=== PATIENT | female | born 1990 | race Caucasian/White ===

== ENCOUNTER 2019-06-26 07:57 | Inpatient (IN) ==
[2019-06-26] MEDS ORDERED: IOPAMIDOL 100 ML BOTTLE IV ONE (07:58)
[2019-06-26] MEDS ORDERED: IPRATROPIUM/ALBUTEROL 3 ML AMPUL.NEB NEB ONE (08:06)
--- NOTE | 2019-06-26 08:06 | Emergency Department Note ---
SOB HPI - General Chief Complaint: Shortness of Breath/Dyspnea Stated Complaint: shortness of breath Time Seen by Provider: 06/26/19 08:02 Mode of arrival: ambulatory - History of Present Illness This patient started feeling short of breath with cough last evening. She is coughing up a lot of phlegm. No history of asthma. No history of vaping though she does smoke cigarettes. - Related Data Previous Rx's Medication Instructions Recorded norgestimate-ethinyl estradiol 1 tab PO QDAY #28 tab 04/20/19 sertraline 100 mg tablet 100 mg PO QDAY #30 tab 06/06/19 Allergies Allergy/AdvReac Type Severity Reaction Status Date / Time No Known Drug Allergies Allergy Verified 06/06/19 08:44 Review of Systems All systems ED: reviewed and negative except as stated. Past Medical History - Past Medical History Medical history: Reports: no medical history, other (anxiety with panic attack) Psychiatric history: Reports: anxiety, panic disorder. Denies: PTSD, prior suicide attempt - Social History smoking status: Current every day smoker Physical Exam Limitations: no limitations General appearance: alert Head: atraumatic Eye: Present: normal appearance ENT: Present: normal exam Neck: Present: normal inspection Chest: Present: normal inspection Respiratory: Present: rales/crackles, wheezes Cardiovascular: Present: regular rate, normal rhythm, normal heart sounds Abdominal: Present: soft. Absent: distention, tenderness Neurological: Present: alert Psychiatric: Present: normal affect Skin: Present: warm, dry Course Vital Signs Temperature 97.1 F 06/26/19 07:58 Pulse Rate 109 H 06/26/19 07:58 Respiratory Rate 22 06/26/19 07:58 Blood Pressure 133/70 06/26/19 07:58 Pulse Oximetry (%) 91 06/26/19 07:58 Temperature 97.1 F 06/26/19 07:58 Pulse Rate 108 H 06/26/19 08:34 Respiratory Rate 20 06/26/19 08:34 Blood Pressure 133/70 06/26/19 07:58 Pulse Oximetry (%) 92 06/26/19 08:44 Shortness of Breath/Dyspnea - [facility] Narrative Medical decision making narrative: This patient's chest x-ray was read as normal. She is having a lot of pleuritic chest pain and tells me that she does take control pills. She is tachycardic and hypoxic so we will go ahead and do a CT the angiogram of the chest to look for pulmonary embolus. Final disposition on this patient per Dr. Augustine. - Lab Data Result diagrams: 06/26/19 08:20 06/26/19 08:20 Disposition Pt seen by EMPLOYEE BENEFITS COORDINATOR/PA only: No Clinical Impression: Shortness of breath Disposition: Still a Patient Condition: Good Referrals: Naila Dunn ARNP [Primary Care Provider] -
--- NOTE | 2019-06-26 08:23 | XRay Report ---
CLINICAL INFORMATION: Shortness of breath and cough COMPARISON: 11/12/2009 and 10/29/2018 TECHNIQUE: PA and Lateral views FINDINGS: The heart size, mediastinum and pulmonary vessels are unremarkable. The lungs are clear. There are no effusions. The bones and soft tissues are within normal limits. IMPRESSION: Normal chest. Interpreted and Authenticated by: Yuval Yu 06/26/19
[2019-06-26 09:21] LABS: Basophils # (Auto) 0 K/mcL (0.0-0.3); Basophils % (Auto) 0.3 % (0.0-2.0); Eosinophils # (Auto) 0.1 K/mcL (0.0-0.7); Eosinophils % (Auto) 0.7 % (0.0-7.0); Granulocytes % (Auto) 88.9 % (38.0-78.0); Hematocrit 40.5 % (36.0-48.0); Hemoglobin 13.4 g/dL (12.0-15.0); Lymphocytes # (Auto) 0.7 K/mcL (1.5-4.8); Lymphocytes % (Auto) 6.2 % (15.5-49.0); Mean Cell Volume 82.4 fL (80.0-100.0); Monocytes # (Auto) 0.5 K/mcL (0.1-0.9); Monocytes % (Auto) 3.9 % (1.0-12.0); Platelet Count 247 K/mcL (140-440); RBC 4.91 M/mcL (4.00-5.20); Red Cell Distribution Width 14.3 % (11.5-14.5); WBC 12.1 K/mcL (4.5-11.0)
[2019-06-26 09:37] LABS: ALT/SGPT 14 U/l (0-40); AST/SGOT 19 U/l (0-37); Albumin 4.4 gm/dL (3.2-5.2); Albumin/Globulin Ratio 1.3 (1.0-2.3); Alkaline Phosphatase 61 U/L (39-117); Bilirubin,Total 0.3 mg/dL (0.0-1.0); Blood Urea Nitrogen 4 mg/dl (6-20); Calcium 9.1 mg/dl (8.6-10.4); Carbon Dioxide 23 mmol/L (22-30); Chloride 103 mmol/L (96-108); Globulin 3.4 gm/dL (2.2-3.7); Glomerular Filtration Rate 124; Glucose 107 mg/dL (70-105)
--- NOTE | 2019-06-26 09:40 | Cat Scan Report ---
CLINICAL INFORMATION: Shortness of breath COMPARISON: None. TECHNIQUE: ml of Isovue-370 were injected intravenously. Using SmartPrep to maximize pulmonary artery opacification, .625mm helical slices were obtained from the lung apices through the lung bases. Following reconstruction, 2.5 mm sagittal, coronal, and axial reformations were processed. The exam was reviewed at mediastinal, lung, and bone windows. The exam was performed using radiation dose optimization techniques including, but not limited to, automated exposure control, adjustment of the mA and/or kV according to patient size and use of iterative reconstruction technique. FINDINGS: The pulmonary arteries are well-opacified and normal in contour and caliber. No evidence of embolus. The thoracic aorta is also normal in diameter. There is no adenopathy in the mediastinal, hilar or axillary regions. The heart is normal in size and configuration. Esophagus is unremarkable. Moderate sized patchy infiltrate in the lingula likely represents a community-acquired pneumonia. No effusions. Bones and soft tissues normal. Images of the superior abdomen are normal. IMPRESSION: 1. Moderate patchy lingular infiltrate is likely a community-acquired pneumonia 2. No evidence of pulmonary embolus Interpreted and Authenticated by: Yuval Yu 06/26/19
[2019-06-26] MEDS ORDERED: ALBUTEROL SULFATE 5 MG/ML NEB SOLUTION BOTTLE NEB ONE (09:50)
[2019-06-26] MEDS ORDERED: AZITHROMYCIN 250 MG TABLET PO ONE (09:50)
[2019-06-26] MEDS ORDERED: cefTRIAXone 1 GM VIAL IV ONE (09:50)
--- NOTE | 2019-06-26 09:53 | Emergency Department Note ---
SOB HPI - General Chief Complaint: Shortness of Breath/Dyspnea Stated Complaint: shortness of breath Time Seen by Provider: 06/26/19 08:02 Source: patient Mode of arrival: ambulatory Limitations: no limitations - History of Present Illness 29-year-old female comes in for shortness of breath x2 days. She is a smoker that is on control. She is hypoxic with pulse oximetry levels in the mid 80s. She reports that she had an inhaler when she was a child but no formal diagnosis of asthma I received this patient in checkout from Dr. peters at shift change. I reviewed his note - Related Data Previous Rx's Medication Instructions Recorded norgestimate-ethinyl estradiol 1 tab PO QDAY #28 tab 04/20/19 sertraline 100 mg tablet 100 mg PO QDAY #30 tab 06/06/19 Allergies Allergy/AdvReac Type Severity Reaction Status Date / Time No Known Drug Allergies Allergy Verified 06/06/19 08:44 Past Medical History - Past Medical History Medical history: Reports: other (anxiety with panic attack) Psychiatric history: Reports: anxiety, panic disorder. Denies: PTSD, prior suicide attempt - Social History smoking status: Current every day smoker Physical Exam She is certainly having significant dyspnea with any exertion. Significant end expiratory wheeze. I tried to take off her oxygen and her pulse oximetry dropped into the mid 80s. She is not cyanotic. She is not moving air well however Limitations: no limitations General appearance: alert Course Vital Signs Temperature 97.1 F 06/26/19 07:58 Pulse Rate 109 H 06/26/19 07:58 Respiratory Rate 22 06/26/19 07:58 Blood Pressure 133/70 06/26/19 07:58 Pulse Oximetry (%) 91 06/26/19 07:58 Temperature 97.1 F 06/26/19 07:58 Pulse Rate 97 H 06/26/19 10:16 Respiratory Rate 20 06/26/19 10:16 Blood Pressure 124/77 06/26/19 10:16 Pulse Oximetry (%) 94 06/26/19 10:16 Shortness of Breath/Dyspnea - Lab Data Lab results reviewed: Yes I reviewed the patient's lab results. Result diagrams: 06/26/19 08:20 06/26/19 08:20 Lab Results 09/23/19 09/23/19 09/23/19 Range/Units 08:20 08:20 08:20 WBC 12.1 H (4.5-11.0) K/mcL RBC 4.91 (4.00-5.20) M/mcL Hgb 13.4 (12.0-15.0) g/dL Hct 40.5 (36.0-48.0) % MCV 82.4 (80.0-100.0) fL MCH 27.2 (26.0-34.0) pg MCHC 33.0 (31.0-36.0) g/dL RDW 14.3 (11.5-14.5) % Plt Count 247 (140-440) K/mcL MPV 9.0 (7.4-10.4) fL Gran % 88.9 H (38.0-78.0) % Lymph % (Auto) 6.2 L (15.5-49.0) % [place] % (Auto) 3.9 (1.0-12.0) % Eos % (Auto) 0.7 (0.0-7.0) % Baso % (Auto) 0.3 (0.0-2.0) % Gran # 10.8 H (1.8-8.0) K/mcL Lymph # (Auto) 0.7 L (1.5-4.8) K/mcL [place] # (Auto) 0.5 (0.1-0.9) K/mcL Eos # (Auto) 0.1 (0.0-0.7) K/mcL Baso # (Auto) 0 (0.0-0.3) K/mcL D-Dimer 0.30 (0.00-0.40) ug/ml Sodium 139 (133-145) mmol/L Potassium 4.1 (3.3-5.1) mmol/L Chloride 103 (96-108) mmol/L Carbon Dioxide 23 (22-30) mmol/L Anion Gap 13.0 (8-16) BUN 4 L (6-20) mg/dl Creatinine 0.6 (0.6-1.1) mg/dl GFR Calculation 124 Glucose 107 H (70-105) mg/dL Calcium 9.1 (8.6-10.4) mg/dl Total Bilirubin 0.3 (0.0-1.0) mg/dL AST 19 (0-37) U/l ALT 14 (0-40) U/l Alkaline Phosphatase 61 (39-117) U/L Total Protein 7.8 (5.9-8.4) gm/dL Albumin 4.4 (3.2-5.2) gm/dL Globulin 3.4 (2.2-3.7) gm/dL Albumin/Globulin Ratio 1.3 (1.0-2.3) - Radiology Data Radiology results reviewed: Yes I reviewed the patient's radiology results. Reviewed chest x-ray see report. CT angiogram was ordered which showed no pulmonary embolism but does show pneumonia Disposition Pt seen by BEAD FORMING MACHINE OPERATOR/PA only: No Clinical Impression: Acute exacerbation of chronic obstructive airways disease Community acquired pneumonia Qualifiers: Laterality: left Lung location: upper lobe of lung Qualified Code(s): J18.1 - Lobar pneumonia, unspecified organism Summary: After receiving patient reevaluated her. She still having significant shortness of breath and requiring oxygen via nasal cannula 2 L. Ordered blood gas blood cultures. CT angiogram showed lingular infiltrate consistent with community- acquired pneumonia. Likely this is superimposed on early COPD with her smoking history. We will give heart neb. Start antibiotics with ceftriaxone and azithromycin per antibiotic gram She will need to come in the hospital secondary to her hypoxia. Will discuss case with hospitalist. ABG was with pH 7.40 PCO2 41 PO2 50 on room air. I discussed the case with Dr. Stafford. He agreed to accept the patient for further care and evaluation of his asthmatic bronchitis. RT will do peak flow prior to coming to the floor Disposition: Xfer As Inpt ([facility]) Condition: Serious Referrals: Naila Dunn ARNP [Primary Care Provider] -
[2019-06-26] MEDS ORDERED: LORazepam 2 MG/ML VIAL IV ONE (11:25)
[2019-06-26] MEDS ORDERED: methylPREDNISolone SOD SUCC 125 MG/2 ML VIAL IV ONE (11:30)
--- NOTE | 2019-06-26 11:51 | Internal Med History&Physical ---
Medical - H&P: HPI Patient information: Note initiated : 06/26/19 at 11:47 am Service Date, if different from initiated Date: [] Patient: Gifty Sutton a 29 y/o F admitted on for Shortness of breath. Chief Complaint: [] History of present illness: Ms. Sutton is a 29 year old F Presents with shortness of breath. He says about 5:00 after work yesterday she started coughing up clear phlegm and having nausea vomiting. She developed chest tightness of her entire chest. This continued through the night she did not sleep much. This morning he presented to the ED. Where she was satting in the low to mid 80s on room air. And very tachypneic and anxious. She also has felt very wheezy. Denies any fevers or chills. Denies any exposure to cleaning products or smoke or odors of any kind that she feels could have triggered this event. She has a history of asthma as a child but does not have any current inhalers. She also had a similar episode in October of shortness of breath after working at [employer]. She presented to the ED. She was given breathing treatments which helped as well as anti-anxiolytic. She was prescribed a albuterol inhaler which she took at home and at which helped in her symptoms essentially resolved. Her grandmother and aunt also had severe asthma. She did fill some relief with the nebulizer treatment in the ED. CTA was done given the normal chest x-ray and her being on oral contraceptives which was negative for PE but did show moderate patchy lingular infiltrate. Review of Systems: Pertinent positives as above. Denies headache/fever/chills/ abdominal pain/fox rrhea. Remaining 10 point review of systems reviewed negative Medical - H&P: PMH Medical history: Medical History (Last Reviewed 06/06/19 @ 08:58 by EVELYN Cleveland) Contraceptive management (Chronic) Migraines (Chronic) Substance use disorder (Chronic) Depression with anxiety (Chronic) Panic disorder (Chronic) Asthma (Resolved) as a child Surgical history: None Family History (Last Updated 06/06/19 @ 09:32 by EVELYN [place]) Grandmother Arthritis and severe asthma Father Glioblastoma Mother Migraine Family/Other Breast cancer Stomach cancer Aunt had asthma as well Social History (Last Updated 06/06/19 @ 09:50 by Naila Dunn [facility]) Smokes a pack of cigarettes per day Denies alcohol use Lives with family Medical - H&P: Meds Home Medications Medication Instructions Recorded Confirmed Type norgestimate-ethinyl estradiol 1 tab PO QDAY #28 tab 04/20/19 06/06/19 Rx sertraline 100 mg tablet 100 mg PO QDAY #30 tab 06/06/19 06/06/19 Rx Allergies Allergy/AdvReac Type Severity Reaction Status Date / Time No Known Drug Allergies Allergy Verified 06/06/19 08:44 Medical - H&P: Exam - Constitutional Vitals: Temp Pulse Resp BP Pulse Ox 97.1 F 117 H 26 H 130/89 95 06/26/19 07:58 06/26/19 11:10 06/26/19 11:10 06/26/19 11:00 06/26/19 11:10 Exam: General: Alert, Awake, mild respiratory distress and very anxious Eyes/N/T: EOMI, PEERL, DMM Head/Neck: neck supple, normocephalic atraumatic CV: Tachycardic but regular, no murmurs, normal s1/s2 Pulm: Diminished breath sounds bilaterally and moderate to severe wheezing bilaterally, no rhonchi rales Abd: soft, nontender, +BS x4 Ext: no clubbing/cyanosis/edema Neuro: Alert, no focal deficits, moves all extremities, CN 2-12 grossly intact, symmetrical strength b/l upper/lower, sensations intact b/l upper/lower Skin: warm/dry Medical - H&P: Reslt - Labs CBC & Chem 7: 06/26/19 08:20 06/26/19 08:20 Labs: Short CBC 06/26/19 Range/Units 08:20 WBC 12.1 H (4.5-11.0) K/mcL Hgb 13.4 (12.0-15.0) g/dL Hct 40.5 (36.0-48.0) % Plt Count 247 (140-440) K/mcL BMP 06/26/19 08:20 Sodium 139 Potassium 4.1 Chloride 103 Carbon Dioxide 23 BUN 4 L Creatinine 0.6 Glucose 107 H Calcium 9.1 Liver Function 06/26/19 Range/Units 08:20 Total Bilirubin 0.3 (0.0-1.0) mg/dL AST 19 (0-37) U/l ALT 14 (0-40) U/l Alkaline Phosphatase 61 (39-117) U/L Albumin 4.4 (3.2-5.2) gm/dL - Impressions Chest x-ray unremarkable CTA of the chest with patchy lingular infiltrate and no PE Medical - H&P: A/P - Narrative A/P Narrative: A: *Asthmatic bronchitis: -PEF is 16% of predicted *Acute hypoxic respiratory failure: 2/2 above *?Pneumonia: *Tobacco abuse: *Depression/anxiety: * P: -ICU monitoring -steroids (wean in AM) -Nebs nic/prn -serial PEF -IS -O2 supp and wean as able -monitor respiratory status closely -check PCT/man diff/viral resp panel -prn ativan -needs IH script upon d/c -f/u with pulmonology for PFTs -ppx: lovenox
[2019-06-26] MEDS ORDERED: LORazepam 2 MG/ML VIAL IV PRN (11:56)
[2019-06-26] MEDS ORDERED: MAGNESIUM SULFATE 2 GM/50 ML BAG IV ONE (12:00)
[2019-06-26 12:06] LABS: Eosinophils % (Manual) 1 % (0-7); Lymphocytes % 5 % (15-49); Monocytes % (Manual) 3 % (1-12); Platelet Estimate NORMAL (NORMAL); RBC Morphology NORMAL (NORMAL); Segmented Neutrophils % 91 % (38-78)
[2019-06-26] MEDS ORDERED: ONDANSETRON 4 MG/2 ML VIAL IV ONE (12:14)
[2019-06-26] MEDS ORDERED: IPRATROPIUM/ALBUTEROL 3 ML AMPUL.NEB NEB PRN (12:49)
[2019-06-26] MEDS ORDERED: AZITHROMYCIN 500 MG in DEXTROSE 5% IN WATER 250 ML IV SCH (12:49)
[2019-06-26] MEDS ORDERED: PROCHLORPERAZINE 10 MG/2 ML VIAL IV PRN (12:49)
[2019-06-26] MEDS ORDERED: POTASSIUM CHLORIDE 40 MEQ in DEXTROSE 5% IN WATER 500 ML IV PRN (12:49)
[2019-06-26] MEDS ORDERED: POLYETHYLENE GLYCOL 3350 17 GM PACKET PO PRN (12:49)
[2019-06-26] MEDS ORDERED: cefTRIAXone 1 GM in DEXTROSE 5% IN WATER 50 ML IV SCH (12:49)
[2019-06-26] MEDS ORDERED: POTASSIUM CHLORIDE 20 MEQ TABLET PO PRN ×2 (12:49)
[2019-06-26] MEDS ORDERED: MAGNESIUM SULFATE 2 GM/50 ML BAG IV PRN (12:49)
[2019-06-26] MEDS ORDERED: ACETAMINOPHEN 325 MG TABLET PO PRN (12:49)
[2019-06-26] MEDS: 0.9 % SODIUM CHLORIDE 500 ML IV SCH ×3 (13:10→23:46)
[2019-06-26] MEDS: IPRATROPIUM/ALBUTEROL 3 ML AMPUL.NEB NEB SCH ×2 (13:25→18:44)
[2019-06-26] MEDS ORDERED: PNEUMOCOCCAL 23-VAL P-SAC VAC 0.5 ML SYRINGE IM ONE (14:30)
[2019-06-26] MEDS: 0.9 % SODIUM CHLORIDE 10 ML SYRINGE IV SCH ×2 (14:53→22:22)
[2019-06-26] MEDS: LORazepam 2 MG/ML VIAL IV PRN (19:19)
[2019-06-26] MEDS: ONDANSETRON 4 MG/2 ML VIAL IV PRN (19:43)
[2019-06-26] MEDS: methylPREDNISolone SOD SUCC 125 MG/2 ML VIAL IV SCH ×2 (19:50→23:03)
[2019-06-26] MEDS ORDERED: SENNOSIDES 1 TABLET PO PRN (21:00)
[2019-06-26] MEDS: BENZONATATE 100 MG CAPSULE PO PRN (22:18)
[2019-06-26] MEDS: ACETAMINOPHEN W/CODEINE #3 1 TABLET PO PRN (23:44)
[2019-06-26] MEDS ORDERED: ACETAMINOPHEN W/CODEINE #3 1 TABLET PO ONE (23:45)
[2019-06-27] MEDS: IPRATROPIUM/ALBUTEROL 3 ML AMPUL.NEB NEB SCH ×4 (01:04→19:00)
[2019-06-27] MEDS: BENZONATATE 100 MG CAPSULE PO PRN ×3 (04:15→19:43)
[2019-06-27] MEDS: LORazepam 2 MG/ML VIAL IV PRN ×5 (04:27→19:26)
[2019-06-27] MEDS: 0.9 % SODIUM CHLORIDE 10 ML SYRINGE IV SCH ×3 (05:37→21:17)
[2019-06-27] MEDS: methylPREDNISolone SOD SUCC 125 MG/2 ML VIAL IV SCH ×3 (05:37→21:17)
[2019-06-27] MEDS: 0.9 % SODIUM CHLORIDE 500 ML IV SCH (06:29)
[2019-06-27 06:46] LABS: Basophils # (Auto) 0 K/mcL (0.0-0.3); Basophils % (Auto) 0 % (0.0-2.0); Eosinophils # (Auto) 0 K/mcL (0.0-0.7); Eosinophils % (Auto) 0 % (0.0-7.0); Granulocytes % (Auto) 94.8 % (38.0-78.0); Hematocrit 37.9 % (36.0-48.0); Hemoglobin 12.6 g/dL (12.0-15.0); Lymphocytes # (Auto) 0.4 K/mcL (1.5-4.8); Lymphocytes % (Auto) 4.7 % (15.5-49.0); Mean Cell Volume 82.7 fL (80.0-100.0); Mean Corpuscular HGB Conc 33.2 g/dL (31.0-36.0); Mean Platelet Volume 8.5 fL (7.4-10.4); Monocytes # (Auto) 0 K/mcL (0.1-0.9); Monocytes % (Auto) 0.5 % (1.0-12.0); Platelet Count 250 K/mcL (140-440); RBC 4.58 M/mcL (4.00-5.20); Red Cell Distribution Width 14.9 % (11.5-14.5); WBC 8.6 K/mcL (4.5-11.0)
--- NOTE | 2019-06-27 07:11 | Internal Med Progress Note ---
Medical - PN: Subj Patient information: Note initiated : 06/27/19 at 7:04 am Service Date, if different from initiated Date: [] Patient: Gifty Sutton a 29 y/o F admitted on 06/26/19 for Shortness of breath. Chief Complaint: [] Interval history: Ms. Sutton is a 29 year old F Presents with shortness of breath. He says about 5:00 after work yesterday she started coughing up clear phlegm and having nausea vomiting. She developed chest tightness of her entire chest. This continued through the night she did not sleep much. This morning he presented to the ED. Where she was satting in the low to mid 80s on room air. And very tachypneic and anxious. She also has felt very wheezy. Denies any fevers or chills. Denies any exposure to cleaning products or smoke or odors of any kind that she feels could have triggered this event. She has a history of asthma as a child but does not have any current inhalers. She also had a similar episode in October of shortness of breath after working at [employer]. She presented to the ED. She was given breathing treatments which helped as well as anti-anxiolytic. She was prescribed a albuterol inhaler which she took at home and at which helped in her symptoms essentially resolved. Her grandmother and aunt also had severe asthma. She did fill some relief with the nebulizer treatment in the ED. CTA was done given the normal chest x-ray and her being on oral contraceptives which was negative for PE but did show moderate patchy lingular infiltrate. 06/27 Slept on and off last night. Will have shortness of breath especially when the nasal cannula was removed however she feels it has improved quite a bit from the ER. Has a cough productive of clear white sputum. She has bit of a headache she thinks might be because she has not had a cigarette couple days. She is anxious and depressed because she is away from her children. Peak expiratory flow doubled but still low at 140 this morning. Review of Systems: denies fever/chills/nausea/vomiting/chest or abdominal pain/diarrhea. Otherwise see above. - Constitutional Vitals: Vital Signs Temp Pulse Resp BP Pulse Ox 97.9 F 83 30 H 108/70 99 06/27/19 04:01 06/27/19 07:04 06/27/19 07:04 06/27/19 07:01 06/27/19 07:04 Period Temp Pulse Resp BP Sys/Adams Pulse Ox Last 24 Hr 97.1 F-99.4 F 68-124 15-30 102-147/61-119 89-99 Intake and Output 06/26/19 06/27/19 06/27/19 21:59 05:59 13:59 Intake Total 990 700 Output Total 1300 600 Balance -310 100 Weight 74.021 kg Intake & Output: Intake & Output 06/26/19 06/27/19 06/27/19 21:59 05:59 13:59 Intake Total 990 700 Output Total 1300 600 Balance -310 100 Weight 74.021 kg Intake: IV 550 Sodium Chloride 0.9% 500 ml @ 500 100 mls/hr IV .Q5H NIC Rx#: [id number] Oral 440 700 Output: Urine Catheter Amount 600 Void Amount 1300 Other: Meal Dinner Percent of Meal Consumed 75% Feeding Ability Assist with Tray Set Up Urine Appearance Clear Urine Color Bright Yellow Dark Yellow Urine Odor Normal Exam: General: Alert, Awake, NAD Eyes/N/T: EOMI, Head/Neck: neck supple, CV: mildly Tachycardic but regular, no murmurs Pulm: Diminished BS b/l but moderately better than yesterday and wheezing b/l is improving Abd: soft, nontender, +BS x4 Ext: no clubbing/cyanosis/edema Neuro: Alert, no focal deficits, moves all extremities, Skin: warm/dry Psych: anxious/depressed Medical - PN: Obj Da - Labs CBC & Chem 7: 06/27/19 03:40 06/27/19 03:40 Labs: Abnormal Lab Results 06/27/19 06/26/19 06/26/19 03:40 08:20 08:20 WBC RDW 14.9 H Gran % 94.8 H Lymph % (Auto) 4.7 L [place] % (Auto) 0.5 L Gran # 8.2 H Lymph # (Auto) 0.4 L [place] # (Auto) 0 L Seg Neutrophils % 91 H Lymphocytes % 5 L BUN 4 L Glucose 107 H 06/26/19 08:20 WBC 12.1 H RDW Gran % 88.9 H Lymph % (Auto) 6.2 L [place] % (Auto) Gran # 10.8 H Lymph # (Auto) 0.7 L [place] # (Auto) Seg Neutrophils % Lymphocytes % BUN Glucose Meds: Medications Acetaminophen (Tylenol) 650 mg PO Q6HP PRN PRN Reason: PAIN/FEVER > 101 Acetaminophen/Codeine Phosphate (Tylenol #3) 1 tab PO Q4HP PRN; Protocol PRN Reason: PAIN LEVEL 3-6 Last Admin: 06/26/19 23:44 Dose: 1 tab Documented by: Albuterol/Ipratropium (Duoneb) 3 ml NEB Q6HRT NIC Last Admin: 06/27/19 01:04 Dose: 3 ml Documented by: Albuterol/Ipratropium (Duoneb) 3 ml NEB Q4HP PRN PRN Reason: Shortness Of Breath Benzonatate (Tessalon) 200 mg PO TIDP PRN PRN Reason: Cough Last Admin: 06/27/19 04:15 Dose: 200 mg Documented by: Ceftriaxone Sodium (Rocephin) 1 gm IV DAILY [facility] Enoxaparin Sodium (Lovenox) 40 mg SQ DAILY [facility] Potassium Chloride 40 meq/ (Dextrose) 520 mls @ 130 mls/hr IV UD PRN PRN Reason: Potassium < 3 Magnesium Sulfate (Magnesium Sulfate) 2 gm in 50 mls @ 50 mls/hr IV UD PRN PRN Reason: Magnesium </= 1.6 Azithromycin 500 mg/ Dextrose 250 mls @ 250 mls/hr IV DAILY [facility]; Protocol Stop: 06/28/19 09:59 Lorazepam (Ativan) 0.5 mg IV Q4-6HP PRN PRN Reason: ANXIETY/SEDATION Last Admin: 06/27/19 04:27 Dose: 0.5 mg Documented by: Methylprednisolone Sodium Succinate (Solu-Medrol) 80 mg IV Q8 [facility] Last Admin: 06/27/19 05:37 Dose: 80 mg Documented by: Ondansetron HCl (Zofran) 4 mg IV Q4HP PRN PRN Reason: Nausea And Vomiting Last Admin: 06/26/19 19:43 Dose: 4 mg Documented by: Patient Own Medication () 1 dose PO QHS [facility] Polyethylene Glycol (Miralax) 17 gm PO DAILYP PRN PRN Reason: Constipation Potassium Chloride (Kdur) 40 meq PO UD PRN PRN Reason: Potssium is 3-3.5 Potassium Chloride (Kdur) 40 meq PO UD PRN PRN Reason: Potassium < 3 Prochlorperazine (Compazine) 10 mg IV Q6HP PRN PRN Reason: Nausea And Vomiting Senna (Senokot) 2 tab PO HSP PRN PRN Reason: Constipation Sertraline HCl (Zoloft) 100 mg PO QHS NIC Sodium Chloride (Saline Flush) 10 ml IV Q8 NIC Last Admin: 06/27/19 05:37 Dose: 10 ml Documented by: Medical - PN: A/P - Time Spent With Patient Total time spent is greater than 50% in coordination of care (as documented) at patient's floor/unit and/or counseling patient: - Narrative A/P Narrative: A: *Asthmatic bronchitis: improving -PEF is 16% of predicted in ED -PEF is 32% of predicted this morning *Acute hypoxic respiratory failure: 2/2 above -on 3L NC *?Pneumonia: infiltrate on CT. no bands/low PCT, suspect viral *Tobacco abuse: *Depression/anxiety: * P: -ICU monitoring -steroids (wean) -Nebs nic/prn -serial PEF -IS -O2 supp and wean as able -monitor respiratory status closely -check viral resp panel -prn ativan -needs IH script upon d/c -f/u with pulmonology for PFTs -ppx: lovenox
[2019-06-27 07:55] LABS: ALT/SGPT 10 U/l (0-40); AST/SGOT 14 U/l (0-37); Albumin 4.2 gm/dL (3.2-5.2); Albumin/Globulin Ratio 1.2 (1.0-2.3); Alkaline Phosphatase 60 U/L (39-117); Bilirubin,Direct < 0.2 mg/dL (0.0-0.3); Bilirubin,Total 0.2 mg/dL (0.0-1.0); Blood Urea Nitrogen 7 mg/dl (6-20); Calcium 9.1 mg/dl (8.6-10.4); Carbon Dioxide 22 mmol/L (22-30); Chloride 100 mmol/L (96-108); Globulin 3.6 gm/dL (2.2-3.7); Glomerular Filtration Rate 124; Glucose 203 mg/dL (70-105); Lactate Dehydrogenase 196 U/L (94-250); Phosphorous 1.9 mg/dL (2.7-4.5); Triglycerides 67 mg/dl (<150); Uric Acid 2.7 mg/dL (2.5-8.0)
[2019-06-27] MEDS ORDERED: DEXTROSE 50% 50 ML VIAL IV PRN (08:07)
[2019-06-27] MEDS ORDERED: DEXTROSE 31 GM ORAL.SUSP PO PRN (08:07)
[2019-06-27] MEDS ORDERED: SERTRALINE 100 MG TABLET PO SCH (09:00)
[2019-06-27] MEDS ORDERED: NORGESTIMATE ETHINYL ESTRADIOL PO SCH (09:00)
[2019-06-27] MEDS ORDERED: NICOTINE 21 MG PATCH TOPICAL SCH (09:04)
[2019-06-27] MEDS: AZITHROMYCIN 500 MG in DEXTROSE 5% IN WATER 250 ML IV SCH (09:22)
[2019-06-27] MEDS: NICOTINE 14 MG PATCH TOPICAL SCH ×2 (09:22→10:34)
[2019-06-27] MEDS: NEUTRA PHOS 1 PACKET PO SCH ×2 (09:22→20:41)
[2019-06-27] MEDS: ENOXAPARIN 40 MG/0.4 ML SYRINGE SQ SCH (09:22)
[2019-06-27] MEDS: ACETAMINOPHEN W/CODEINE #3 1 TABLET PO PRN ×2 (09:29→19:43)
[2019-06-27] MEDS: cefTRIAXone 1 GM VIAL IV SCH (09:30)
[2019-06-27] MEDS: INSULIN LISPRO 1 UNIT/0.01 ML UNIT SQ SCH ×3 (13:51→20:40)
[2019-06-27] MEDS: ONDANSETRON 4 MG/2 ML VIAL IV PRN (15:17)
[2019-06-27] MEDS ORDERED: hydrOXYzine 25 MG TABLET PO PRN (20:25)
[2019-06-27] MEDS: NORGESTIMATE ETHINYL ESTRADIOL PO SCH (20:40)
[2019-06-27] MEDS: SERTRALINE 100 MG TABLET PO SCH (20:41)
[2019-06-28] MEDS: IPRATROPIUM/ALBUTEROL 3 ML AMPUL.NEB NEB SCH ×4 (01:23→19:01)
[2019-06-28] MEDS: BENZONATATE 100 MG CAPSULE PO PRN (05:38)
[2019-06-28] MEDS: methylPREDNISolone SOD SUCC 125 MG/2 ML VIAL IV SCH (05:38)
[2019-06-28] MEDS: 0.9 % SODIUM CHLORIDE 10 ML SYRINGE IV SCH ×3 (05:38→21:59)
[2019-06-28] MEDS: INSULIN LISPRO 1 UNIT/0.01 ML UNIT SQ SCH ×4 (07:19→20:49)
--- NOTE | 2019-06-28 07:20 | Discharge Summary ---
Medical - DS: Prov Patient information: Note initiated : 06/28/19 at 7:19 am Service Date, if different from initiated Date: [] Patient: Gifty Sutton 29 y/o F admitted on 06/26/19 for Shortness of breath. Chief Complaint: [] Date of admission: 06/26/19 12:44 Primary care physician: Naila Dunn Consults: 06/26/19 Consult to Physician [CONS] Stat Comment: Consulting Provider: Nishant Stafford Reason For Exam: Physician to Consult Medical - DS: Meds - Discharge Medications Active and Home Medications: Home Medications norgestimate-ethinyl estradiol 1 tab PO QDAY #28 tab 04/20/19 [Rx Confirmed 06/27/19 Last Taken 06/25/19 21:00] sertraline 100 mg tablet 100 mg PO QDAY #30 tab 06/06/19 [Rx Confirmed 06/27/19 Last Taken 06/25/19 21:00] Medical - DS: Hosp - Time Spent with Patient Total time spent providing and/or coordinating discharge services: Medical - DS: Exam - Constitutional Vitals: Vital Signs Temp Pulse Pulse Resp BP Pulse Ox 06/28/19 07:12 80 18 92 06/28/19 07:01 74 18 123/69 94 06/28/19 06:38 78 21 90 06/28/19 06:01 81 17 128/81 94 06/28/19 05:52 81 22 125/77 97 06/28/19 05:36 90 06/28/19 05:01 93 H 21 127/83 88 L 06/28/19 04:35 88 L 06/28/19 04:30 91 06/28/19 04:01 98.7 F 89 18 118/76 90 06/28/19 03:51 90 06/28/19 03:48 90 06/28/19 03:31 88 20 91 06/28/19 03:01 82 19 115/71 90 06/28/19 02:58 89 L 06/28/19 02:56 88 L 06/28/19 02:45 90 06/28/19 02:43 93 06/28/19 02:40 87 L 06/28/19 02:33 94 06/28/19 02:27 86 L 06/28/19 02:24 88 L 06/28/19 02:20 93 06/28/19 02:18 90 06/28/19 02:15 86 19 91 06/28/19 02:01 72 18 119/74 99 06/28/19 01:01 87 18 120/70 91 06/28/19 01:00 88 18 91 06/28/19 00:15 87 94 06/28/19 00:01 97.7 F 80 20 132/76 94 06/28/19 00:00 80 19 94 06/27/19 23:24 94 H 22 94 06/27/19 23:00 102 H 24 H 131/87 94 06/27/19 22:01 114 H 29 H 123/79 96 06/27/19 21:01 94 H 20 121/71 94 06/27/19 20:32 120 H 06/27/19 20:01 98.1 F 110 H 22 131/76 91 06/27/19 19:06 108 H 98 06/27/19 19:01 133 H 20 134/92 92 06/27/19 19:00 124 H 20 06/27/19 18:01 95 H 20 129/75 91 06/27/19 17:01 108 H 21 132/71 91 06/27/19 16:45 115 H 23 H 92 06/27/19 16:01 99 F 110 H 19 120/71 91 06/27/19 15:01 129 H 19 136/90 95 06/27/19 14:18 138 H 14 91 06/27/19 14:01 124 H 29 H 139/79 93 06/27/19 13:40 126 H 27 H 93 06/27/19 13:26 108 H 20 06/27/19 13:01 27 H 132/80 06/27/19 12:08 19 06/27/19 12:01 20 121/65 06/27/19 11:17 101 H 20 95 06/27/19 11:01 111 H 25 H 124/82 94 06/27/19 10:23 109 H 20 132/73 92 06/27/19 10:22 110 H 19 93 06/27/19 09:33 108 H 17 93 06/27/19 09:01 137 H 19 112/74 97 06/27/19 08:12 105 H 20 92 06/27/19 08:01 100 H 20 109/81 95 06/27/19 07:29 85 15 06/27/19 07:23 95 06/27/19 07:22 95 06/27/19 07:20 94 Intake and Output 06/27/19 06/28/19 06/28/19 21:59 05:59 13:59 Intake Total 920 1200 Output Total 1500 950 Balance -580 250 Intake: Oral 920 1200 Output: Void Amount 1500 950 Other: Meal Dinner Percent of Meal Consumed 75% Feeding Ability Assist with Tray Set Up Urine Appearance Clear Clear Urine Color Straw Straw Urine Odor Normal Normal # Bowel Movements 0 0 Weight 74.661 kg Medical - DS: Data Labs on day of discharge: Labs from last 24 hours 06/27/19 03:40 Sodium 137 Potassium 3.7 Chloride 100 Carbon Dioxide 22 Anion Gap 15.0 BUN 7 Creatinine 0.6 GFR Calculation 124 Glucose 203 H Uric Acid 2.7 Calcium 9.1 Phosphorus 1.9 L Magnesium 2.1 Total Bilirubin 0.2 Direct Bilirubin < 0.2 GGT 13 AST 14 ALT 10 Alkaline Phosphatase 60 Lactate Dehydrogenase 196 Total Protein 7.8 Albumin 4.2 Globulin 3.6 Albumin/Globulin Ratio 1.2 Triglycerides 67 Preliminary micro results at discharge 06/26/19 10:51 Blood Culture - Preliminary Blood 06/26/19 10:57 Blood Culture - Preliminary Blood Medical - DS: A/P - Follow up Plan Follow up with: Naila Dunn ARNP [Primary Care Provider] - Prognosis: Serious
--- NOTE | 2019-06-28 07:22 | Internal Med Progress Note ---
Medical - PN: Subj Patient information: Note initiated : 06/28/19 at 7:20 am Service Date, if different from initiated Date: [] Patient: Gifty Sutton a 29 y/o F admitted on 06/26/19 for Shortness of breath. Chief Complaint: [] Interval history: Ms. Sutton is a 29 year old F Presents with shortness of breath. He says about 5:00 after work yesterday she started coughing up clear phlegm and having nausea vomiting. She developed chest tightness of her entire chest. This continued through the night she did not sleep much. This morning he presented to the ED. Where she was satting in the low to mid 80s on room air. And very tachypneic and anxious. She also has felt very wheezy. Denies any fevers or chills. Denies any exposure to cleaning products or smoke or odors of any kind that she feels could have triggered this event. She has a history of asthma as a child but does not have any current inhalers. She also had a similar episode in October of shortness of breath after working at [employer]. She presented to the ED. She was given breathing treatments which helped as well as anti-anxiolytic. She was prescribed a albuterol inhaler which she took at home and at which helped in her symptoms essentially resolved. Her grandmother and aunt also had severe asthma. She did fill some relief with the nebulizer treatment in the ED. CTA was done given the normal chest x-ray and her being on oral contraceptives which was negative for PE but did show moderate patchy lingular infiltrate. 06/27 Slept on and off last night. Will have shortness of breath especially when the nasal cannula was removed however she feels it has improved quite a bit from the ER. Has a cough productive of clear white sputum. She has bit of a headache she thinks might be because she has not had a cigarette couple days. She is anxious and depressed because she is away from her children. Peak expiratory flow doubled but still low at 140 this morning. 06/28 Slept better. Still has cough occasionally productive. Shortness of breath present but improving. Appears more relaxed this morning when before. No new complaints. Down to 1.5 L of nasal cannula and hoping to titrate off possibly later today. Review of Systems: denies fever/chills/nausea/vomiting/chest or abdominal pain/diarrhea. Otherwise see above. - Constitutional Vitals: Vital Signs Temp Pulse Resp BP Pulse Ox 98.7 F 80 18 123/69 92 06/28/19 04:01 06/28/19 07:12 06/28/19 07:12 06/28/19 07:01 06/28/19 07:12 Period Temp Pulse Resp BP Sys/Adams Pulse Ox Last 24 Hr 97.7 F-99 F 72-138 14-29 109-139/65-92 86-99 Intake and Output 06/27/19 06/28/19 06/28/19 21:59 05:59 13:59 Intake Total 920 1200 Output Total 1500 950 Balance -580 250 Weight 74.661 kg Intake & Output: Intake & Output 06/27/19 06/28/19 06/28/19 21:59 05:59 13:59 Intake Total 920 1200 Output Total 1500 950 Balance -580 250 Weight 74.661 kg Intake: Oral 920 1200 Output: Void Amount 1500 950 Other: Meal Dinner Percent of Meal Consumed 75% Feeding Ability Assist with Tray Set Up Urine Appearance Clear Clear Urine Color Straw Straw Urine Odor Normal Normal # Bowel Movements 0 0 Exam: General: Alert, Awake, NAD Eyes/N/T: EOMI, Head/Neck: neck supple, CV: RRR, no murmurs Pulm: better aeration today, wheezing b/l is slowly improving Abd: soft, nontender, +BS x4 Ext: no clubbing/cyanosis/edema Neuro: Alert, no focal deficits, moves all extremities, Skin: warm/dry Medical - PN: Obj Da - Labs CBC & Chem 7: 06/27/19 03:40 06/27/19 03:40 Labs: Abnormal Lab Results 06/27/19 06/27/19 06/26/19 03:40 03:40 08:20 WBC RDW 14.9 H Gran % 94.8 H Lymph % (Auto) 4.7 L Gall[place] % (Auto) 0.5 L Gran # 8.2 H Lymph # (Auto) 0.4 L [place] # (Auto) 0 L Seg Neutrophils % 91 H Lymphocytes % 5 L BUN Glucose 203 H Phosphorus 1.9 L 06/26/19 06/26/19 08:20 08:20 WBC 12.1 H RDW Gran % 88.9 H Lymph % (Auto) 6.2 L Gall[place] % (Auto) Gran # 10.8 H Lymph # (Auto) 0.7 L [place] # (Auto) Seg Neutrophils % Lymphocytes % BUN 4 L Glucose 107 H Phosphorus Meds: Medications Acetaminophen (Tylenol) 650 mg PO Q6HP PRN PRN Reason: PAIN/FEVER > 101 Last Admin: 06/27/19 13:52 Dose: 650 mg Documented by: Acetaminophen/Codeine Phosphate (Tylenol #3) 1 tab PO Q4HP PRN; Protocol PRN Reason: PAIN LEVEL 3-6 Last Admin: 06/27/19 19:43 Dose: 1 tab Documented by: Albuterol/Ipratropium (Duoneb) 3 ml NEB Q6HRT [facility] Last Admin: 06/28/19 01:23 Dose: 3 ml Documented by: Albuterol/Ipratropium (Duoneb) 3 ml NEB Q4HP PRN PRN Reason: Shortness Of Breath Benzonatate (Tessalon) 200 mg PO TIDP PRN PRN Reason: Cough Last Admin: 06/28/19 05:38 Dose: 200 mg Documented by: Ceftriaxone Sodium (Rocephin) 1 gm IV DAILY [facility] Last Admin: 06/27/19 09:30 Dose: 1 gm Documented by: Dextrose (Dextrose 50%) 0 ml IV UD PRN PRN Reason: Hypoglycemia Diagnostic Test (Pha) (Accu-Chek) 1 each FS ACHS [facility] Last Admin: 06/28/19 07:16 Dose: 1 each Documented by: Enoxaparin Sodium (Lovenox) 40 mg SQ DAILY [facility] Last Admin: 06/27/19 09:22 Dose: 40 mg Documented by: Glucose (Insta-Glucose) 15 gm PO PRN PRN PRN Reason: Hypoglycemia Hydroxyzine HCl (Atarax) 50 mg PO Q6HP PRN PRN Reason: Anxiety Potassium Chloride 40 meq/ (Dextrose) 520 mls @ 130 mls/hr IV UD PRN PRN Reason: Potassium < 3 Magnesium Sulfate (Magnesium Sulfate) 2 gm in 50 mls @ 50 mls/hr IV UD PRN PRN Reason: Magnesium </= 1.6 Azithromycin 500 mg/ Dextrose 250 mls @ 250 mls/hr IV DAILY [facility]; Protocol Stop: 06/28/19 09:59 Last Infusion: 06/27/19 10:32 Dose: Infused Documented by: Insulin Human Lispro (Humalog) 0 unit SQ [facility]; Protocol Last Admin: 06/28/19 07:19 Dose: Not Given Documented by: Lorazepam (Ativan) 0.5 mg IV Q4-6HP PRN PRN Reason: ANXIETY/SEDATION Last Admin: 06/27/19 19:26 Dose: 0.5 mg Documented by: Methylprednisolone Sodium Succinate (Solu-Medrol) 40 mg IV Q8 [facility] Last Admin: 06/28/19 05:38 Dose: 40 mg Documented by: Nicotine (Nicoderm) 14 mg TOPICAL DAILY@1000 [facility] Last Admin: 06/27/19 10:34 Dose: Not Given Documented by: Ondansetron HCl (Zofran) 4 mg IV Q4HP PRN PRN Reason: Nausea And Vomiting Last Admin: 06/27/19 15:17 Dose: 4 mg Documented by: Norgestimate-Ethinyl Estradiol [Tri-Lo- Sprintec] Tab 1 dose PO QHS [facility] Last Admin: 06/27/19 20:40 Dose: 1 dose Documented by: Polyethylene Glycol (Miralax) 17 gm PO DAILYP PRN PRN Reason: Constipation Potassium Chloride (Kdur) 40 meq PO UD PRN PRN Reason: Potssium is 3-3.5 Potassium Chloride (Kdur) 40 meq PO UD PRN PRN Reason: Potassium < 3 Prochlorperazine (Compazine) 10 mg IV Q6HP PRN PRN Reason: Nausea And Vomiting Senna (Senokot) 2 tab PO HSP PRN PRN Reason: Constipation Sertraline HCl (Zoloft) 100 mg PO QHS [facility] Last Admin: 06/27/19 20:41 Dose: 100 mg Documented by: Sodium Chloride (Saline Flush) 10 ml IV Q8 [facility] Last Admin: 06/28/19 05:38 Dose: 10 ml Documented by: Medical - PN: A/P - Time Spent With Patient Total time spent is greater than 50% in coordination of care (as documented) at patient's floor/unit and/or counseling patient: - Narrative A/P Narrative: A: *Asthmatic bronchitis: improving slowly -PEF is 16% of predicted in ED -PEF is 40% of predicted this morning, although she did not put much effort into it as I felt she could have -viral panel neg except for rhinovirus *Acute hypoxic respiratory failure: 2/2 above -on 1.5L NC *?Pneumonia: infiltrate on CT. no bands/low PCT, suspect viral *Tobacco abuse: *Depression/anxiety: extremely anxious individual and depressed to be away from children * P: -steroids (wean) -Nebs nic/prn -serial PEF -IS/Acapella -O2 supp and wean as able -monitor respiratory status closely -prn ativan -needs IH script upon d/c -f/u with pulmonology for PFTs -ppx: lovenox
[2019-06-28] MEDS: LORazepam 2 MG/ML VIAL IV PRN ×2 (08:45→15:30)
[2019-06-28] MEDS: ENOXAPARIN 40 MG/0.4 ML SYRINGE SQ SCH (09:24)
[2019-06-28] MEDS: AZITHROMYCIN 500 MG in DEXTROSE 5% IN WATER 250 ML IV SCH (09:25)
[2019-06-28] MEDS: cefTRIAXone 1 GM VIAL IV SCH (09:26)
[2019-06-28] MEDS: NICOTINE 14 MG PATCH TOPICAL SCH (09:26)
[2019-06-28] MEDS: predniSONE 20 MG TABLET PO SCH ×2 (11:41→18:42)
[2019-06-28] MEDS: SERTRALINE 100 MG TABLET PO SCH (20:03)
[2019-06-28] MEDS: NORGESTIMATE ETHINYL ESTRADIOL PO SCH (20:04)
[2019-06-29] MEDS: IPRATROPIUM/ALBUTEROL 3 ML AMPUL.NEB NEB SCH ×2 (00:56→07:45)
[2019-06-29] MEDS: 0.9 % SODIUM CHLORIDE 10 ML SYRINGE IV SCH (05:20)
[2019-06-29] MEDS: INSULIN LISPRO 1 UNIT/0.01 ML UNIT SQ SCH ×2 (07:50→11:59)
[2019-06-29] MEDS: ENOXAPARIN 40 MG/0.4 ML SYRINGE SQ SCH (08:03)
[2019-06-29] MEDS: NICOTINE 14 MG PATCH TOPICAL SCH (08:04)
[2019-06-29] MEDS: predniSONE 20 MG TABLET PO SCH ×2 (08:04→11:59)
[2019-06-29] MEDS: cefTRIAXone 1 GM VIAL IV SCH (08:09)
[2019-06-29] MEDS ORDERED: LORazepam 0.5 MG TABLET PO PRN (08:24)
--- NOTE | 2019-06-29 10:09 | Discharge Summary ---
Medical - DS: Prov Patient information: Note initiated : 06/29/19 at 10:06 am Service Date, if different from initiated Date: [] Patient: Gifty Sutton a 29 y/o F admitted on 06/26/19 for Shortness of breath. Chief Complaint: [] Date of admission: 06/26/19 12:44 Discharge date: 06/29/19 Primary care physician: Naila Dunn Consults: 06/26/19 Consult to Physician [CONS] Stat Comment: Consulting Provider: Nishant Stafford Reason For Exam: Physician to Consult Medical - DS: Meds - Discharge Medications Prescriptions: Albuterol Sulfate [Albuterol Sulfate Hfa] 8.5 gm IH Q4H PRN #1 hfa.[email or web address] PRN Reason: Dyspnea Transmission Status: Received by [facility] 2005 Active and Home Medications: Home Medications norgestimate-ethinyl estradiol 1 tab PO QDAY #28 tab 04/20/19 [Rx Confirmed 06/27/19 Last Taken 06/25/19 21:00] sertraline 100 mg tablet 100 mg PO QDAY #30 tab 06/06/19 [Rx Confirmed 06/27/19 Last Taken 06/25/19 21:00] Albuterol Sulfate [Albuterol Sulfate Hfa] 8.5 gm IH Q4H PRN #1 hfa.[email or web address] 06/28/19 [Rx Last Taken Unknown] Medical - DS: Hosp Hospital Course: Discharge diagnosis -Asthmatic bronchitis-managed on steroids/bronchodilators and antibiotic coverage. Much improved peak expiratory flow since admission. Discharging advised to follow pulmonology for outpatient PFTs/continuing oral antibiotics/steroids as directed. -Acute hypoxic respiratory failure secondary to his asthma exacerbation. Clinically resolved. Now on room air. -Community acquired pneumonia clinically improved. Continue antibiotic coverage. -Tobacco dependence counseled on tobacco cessation -History of anxiety depression continue home dose sertraline. Brief hospital course Ms. Sutton is a 29 year old F Presents with shortness of breath. Se says about 5:00 after work yesterday she started coughing up clear phlegm and having nausea vomiting. She developed chest tightness of her entire chest. This continued through the night she did not sleep much. This morning he presented to the ED. Where she was satting in the low to mid 80s on room air. And very tachypneic and anxious. She also has felt very wheezy. Denies any fevers or chills. Denies any exposure to cleaning products or smoke or odors of any kind that she feels could have triggered this event. She has a history of asthma as a child but does not have any current inhalers. She also had a similar episode in October of shortness of breath after working at [employer]. She presented to the ED. She was given breathing treatments which helped as well as anti-anxiolytic. She was prescribed a albuterol inhaler which she took at home and at which helped in her symptoms essentially resolved. Her grandmother and aunt also had severe asthma. She did fill some relief with the nebulizer treatment in the ED. CTA was done given the normal chest x-ray and her being on oral contraceptives which was negative for PE but did show moderate patchy lingular infiltrate. 06/27 Slept on and off last night. Will have shortness of breath especially when the nasal cannula was removed however she feels it has improved quite a bit from the ER. Has a cough productive of clear white sputum. She has bit of a headache she thinks might be because she has not had a cigarette couple days. She is anxious and depressed because she is away from her children. Peak expiratory flow doubled but still low at 140 this morning. 06/28 Slept better. Still has cough occasionally productive. Shortness of breath pre sent but improving. Appears more relaxed this morning when before. No new complaints. Down to 1.5 L of nasal cannula and hoping to titrate off possibly later today. 06/29-patient doing a lot better. Minimal anxiety but now on room air. No tachypnea or shortness of breath. Discharging with advised to continue oral antibiotic along with oral prednisone taper. Prescriptions provided. Recommend follow-up with pulmonology in 2 to 4 weeks For evaluation of asthma. Discharge diagnosis: . - Time Spent with Patient Total time spent providing and/or coordinating discharge services: Greater than 30 minutes Medical - DS: Exam - Constitutional Vitals: Vital Signs Temp Pulse Resp BP Pulse Ox 06/29/19 07:53 15 131/90 97 06/29/19 07:01 15 136/73 95 06/29/19 06:05 65 16 96 06/29/19 06:01 61 14 116/76 97 06/29/19 05:06 98 F 16 06/29/19 05:00 15 120/85 06/29/19 04:21 97.5 F 67 16 96 06/29/19 04:00 72 17 114/74 95 06/29/19 03:04 84 22 91 06/29/19 03:01 81 17 124/76 93 06/29/19 02:07 87 19 93 06/29/19 02:01 93 H 20 124/65 94 06/29/19 01:18 94 H 21 121/74 97 06/29/19 01:06 98.4 F 70 16 98 06/29/19 01:01 79 18 111/59 94 06/29/19 00:46 86 18 115/76 95 06/29/19 00:31 77 17 124/72 94 06/29/19 00:28 79 18 93 06/29/19 00:16 76 17 121/76 93 06/28/19 23:46 81 18 124/74 94 06/28/19 23:31 86 19 125/68 94 06/28/19 23:16 88 22 126/69 94 06/28/19 23:09 94 H 20 93 06/28/19 23:01 95 H 20 117/70 93 06/28/19 22:46 78 20 118/72 93 06/28/19 22:31 93 H 20 137/85 92 06/28/19 22:16 88 16 120/77 94 06/28/19 22:09 73 15 95 06/28/19 22:01 78 19 122/77 98 06/28/19 21:46 79 18 126/82 94 06/28/19 21:31 75 20 119/79 94 06/28/19 21:16 75 21 128/86 93 06/28/19 21:01 81 23 H 137/82 96 06/28/19 20:01 98.3 F 88 11 L 125/73 95 06/28/19 19:01 82 14 128/83 94 06/28/19 18:39 110 H 17 91 06/28/19 18:31 90 16 134/83 93 06/28/19 18:16 88 23 H 137/82 92 06/28/19 18:01 90 22 142/99 94 06/28/19 17:57 88 20 97 06/28/19 17:46 102 H 14 137/98 92 06/28/19 17:31 91 H 22 120/94 93 06/28/19 17:16 80 19 130/77 92 06/28/19 17:01 71 18 123/80 93 06/28/19 16:57 72 20 92 06/28/19 16:46 78 17 129/75 93 06/28/19 16:31 74 19 133/90 90 06/28/19 16:19 81 20 108/80 92 06/28/19 16:01 86 17 133/89 90 06/28/19 15:47 109 H 21 91 06/28/19 15:46 89 21 133/84 92 06/28/19 15:31 117 H 26 H 144/96 93 06/28/19 15:16 82 16 141/113 93 06/28/19 15:01 87 19 134/93 92 06/28/19 14:46 75 17 121/81 91 06/28/19 14:31 100 H 17 122/80 93 06/28/19 14:16 75 17 119/72 91 06/28/19 14:14 95 H 20 89 L 06/28/19 14:01 78 17 111/64 93 06/28/19 13:46 82 19 124/74 92 06/28/19 13:31 93 H 22 120/75 89 L 06/28/19 13:17 85 19 91 06/28/19 13:16 91 H 18 129/63 91 06/28/19 13:12 79 19 91 06/28/19 13:07 88 20 119/76 92 06/28/19 12:52 83 18 93 06/28/19 12:50 91 06/28/19 11:01 99.1 F H 101 H 20 124/80 93 06/28/19 11:00 120 H 20 93 06/28/19 10:50 100 H 28 H 126/84 94 06/28/19 10:45 122 H 18 126/84 96 Intake and Output 06/28/19 06/29/19 06/29/19 21:59 05:59 13:59 Intake Total 240 Output Total 1200 Balance -960 Intake: Oral 240 Output: Void Amount 1200 Other: Meal Dinner Percent of Meal Consumed 50% Feeding Ability Independent Urine Appearance Clear Urine Color Bright Yellow Urine Odor Normal Weight 162 lb 12.8 oz Medical - DS: Data Labs on day of discharge: Preliminary micro results at discharge 06/26/19 10:51 Blood Culture - Preliminary Blood 06/26/19 10:57 Blood Culture - Preliminary Blood Medical - DS: A/P - Patient/Caregiver Discharge Instructions Activity: increase activity as tolerated Diet: Regular Diet Additional Instructions: Recommend follow-up with primary care physician 5 to 7 days I recommend follow-up with pulmonology in 2 to 4 weeks for outpatient PFT/asthma outpatient management Return to ER if worsening shortness of breath fever chills Continue antibiotics/steroids as advised Prescriptions: Albuterol Sulfate [Albuterol Sulfate Hfa] 8.5 gm IH Q4H PRN #1 [email or web address] PRN Reason: Dyspnea Transmission Status: Received by [facility] 2005 - Follow up Plan Follow up with: Naila Dunn ARNP [Primary Care Provider] - 07/06/19 8:00 am Lazaro Lee MD [Physician] - 07/27/19 8:30 am (Please check in at 8:15 am for paperwork.) Disposition: Home, Self-Care Care Plan Goals: This discharge packet is provided to you to help keep you informed about your care. We want to ensure you get everything you need when you go home. You will also be receiving a call from us in a few days to follow up with you and see how you are doing since your discharge. This gives us a chance to listen to any concerns you maybe experiencing since you were discharged or any additional needs you may have, as well as providing us feedback on your care experience. We strive to always provide excellent care and thank you for your feedback and for choosing [facility]. Prognosis: Serious Rehab Potential: Fair I certify that the patient requires SNF services: No Overall status at discharge: patient is progressing back to baseline
== END 2019-06-29 12:00 | disposition home or self-care (01) | DRG 202 ==
LOC: ED 07:57 → ICU 12:44
PROVIDERS: ADMIT Internal Medicine; ATTEND Internal Medicine